=== PATIENT | female | born 1980 | race Caucasian/White ===

== ENCOUNTER 2022-01-02 21:05 | Emergency (ER) | payer OTHER ==
[~2022-01-02] VITALS: Ht 165.1 cm; Wt 81.2 kg
[2022-01-02 21:14] VITALS: BP 116/61
[2022-01-02 21:30] VITALS: BP 116/61
--- NOTE | 2022-01-02 21:30 | NUR ---
MEDICALLY CLEARED, OK TO BOOK. DISCHARGE IN POLICE CUSTODY. [facility] IN POSESSION
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
== END 2022-01-02 21:30 ==
LOC: MED 21:05
DX: F41.9 Anxiety disorder, unspecified (principal); Z02.89 Encounter for other administrative examinations; Z98.84 Bariatric surgery status
CPT/HCPCS: 99283